=== PATIENT | male | born 1985 | race Native Hawaiian/Other Pacific Islander ===

== ENCOUNTER 2018-03-28 20:09 | Emergency (ER) | payer OTHER ==
[2018-03-28] MEDS: METHOCARBAMOL 750 MG TAB PO (20:53)
[2018-03-28] MEDS: NAPROXEN 250 MG TAB PO (20:53)
== END 2018-03-28 20:57 | disposition home or self-care (01) ==
LOC: M ED 20:09
DX: S39.012A Strain of muscle, fascia and tendon of lower back, initial encounter (principal); X50.0XXA Overexertion from strenuous movement or load, initial encounter
CPT/HCPCS: 99282

== ENCOUNTER 2019-01-19 04:45 | Emergency (ER) | payer OTHER ==
[~2019-01-19] VITALS: Ht 167.6 cm; Wt 65.9 kg
[~2019-01-19 04:45] MED LIST: NAPR-837 PO; ROBA500T PO
[2019-01-19 05:21] LABS: BASO % 0.6 % (0.0-1.0); EOS # 0.3 10^3/uL (0.0-0.5); EOS % 4.6 % (0.0-3.0); HEMATOCRIT 47.7 % (42.0-52.0); HEMOGLOBIN 16.3 g/dl (13.5-17.5); LYMPH # 2.7 10^3/uL (1.5-5.0); LYMPH % 41.7 % (24.0-44.0); MEAN CORPUSCULAR HEMOGLOBIN 33.7 pg (27.0-33.0); MEAN CORPUSCULAR HGB CONC 34.2 g/dl (32.0-36.5); MEAN CORPUSCULAR VOLUME 98.8 fl (80.0-96.0); MONO # 0.7 10^3/uL (0.0-0.8); MONO % 10.7 % (0.0-5.0); NEUTROPHILS # 2.8 10^3/uL (1.5-8.5); NEUTROPHILS % 42.2 % (36.0-66.0); PLATELET COUNT, AUTOMATED 218 10^3/uL (150-450); RED BLOOD COUNT 4.83 10^6/uL (4.30-6.10); WHITE BLOOD COUNT 6.6 10^3/uL (4.0-10.0)
--- NOTE | 2019-01-19 05:49 | REPVR ---
EXAM: CT Head Without Contrast EXAM DATE/TIME: 01/19/2019 4:56 AM CLINICAL HISTORY: 33 years old, male; Injury or trauma; Fall; Initial encounter; Concussion / head injury; Additional info: Syncope TECHNIQUE: Imaging protocol: Computed tomography of the head without contrast. Radiation optimization: All CT scans at this facility use at least one of these dose optimization techniques: automated exposure control; mA and/or kV adjustment per patient size (includes targeted exams where dose is matched to clinical indication); or iterative reconstruction. COMPARISON: No relevant prior studies available. FINDINGS: There are no intra-or extra-axial hemorrhages or fluid collections. There is no mass effect or midline shift. Ventricles are symmetrical and nondilated for age. There are no focal parenchymal abnormalities. No calvarial fractures. IMPRESSION: No acute intracranial process. No intracranial hemorrhage. Electronically signed by: Jimy Baldwin On 01/19/2019 05:49:14 AM
[2019-01-19 05:51] LABS: BLOOD UREA NITROGEN 16 MG/DL (7-18); CALCIUM LEVEL 9.3 MG/DL (8.5-10.1); CARBON DIOXIDE LEVEL 31 MEQ/L (21-32); CHLORIDE LEVEL 105 MEQ/L (98-107); CREATININE FOR GFR 1.15 MG/DL (0.70-1.30); GLOMERULAR FILTRATION RATE > 60.0 (>60); GLUCOSE, FASTING 105 MG/DL (70-100); POTASSIUM SERUM 4.2 MEQ/L (3.5-5.1); SODIUM LEVEL 142 MEQ/L (136-145)
--- NOTE | 2019-01-19 05:55 | REPVR ---
EXAM: CT Cervical Spine Without Contrast EXAM DATE/TIME: 01/19/2019 4:56 AM CLINICAL HISTORY: 33 years old, male; Injury or trauma; Fall; Initial encounter; Concussion /head injury; Additional info: Syncope TECHNIQUE: Imaging protocol: Computed tomography images of the cervical spine without contrast. Radiation optimization: All CT scans at this facility use at least one of these dose optimization techniques: automated exposure control; mA and/or kV adjustment per patient size (includes targeted exams where dose is matched to clinical indication); or iterative reconstruction. COMPARISON: No relevant prior studies available. FINDINGS: On sagittal sequences, there is normal cervical lordosis. Cervical vertebral body heights are maintained. Disc spaces are maintained. There is no AP malalignment. No prevertebral soft tissue swelling. Posterior elements and facets are intact. On axial sequences, intact neural rings are identified from C1-T1. No evidence of acute fracture. Visualized lung apices are clear. IMPRESSION: No acute fracture or traumatic AP malalignment within the cervical spine. Electronically signed by: Jimy Baldwin On 01/19/2019 05:54:48 AM
[2019-01-19] MEDS ORDERED: KETOROLAC 30 MG/ML VIAL (J1885) IV ONE (06:30)
[2019-01-19 07:23] LABS: ACETAMINOPHEN LEVEL < 2.0 UG/ML (10.0-30.0); ALBUMIN 4.3 GM/DL (3.2-5.2); ALT/SGPT 19 U/L (12-78); BILIRUBIN,DIRECT 0.1 MG/DL (0.0-0.2); BILIRUBIN,TOTAL 0.3 MG/DL (0.2-1.0); CK-MB VALUE MASS < 1.0 NG/ML (<3.6); CPK CREATINE PHOSPHOKINASE 108 U/L (39-308); ETHYL ALCOHOL (ETHANOL) < 0.003 % (0.000-0.010); MB/CK RELATIVE INDEX 0.93 (< OR =4); SALICYLATE LEVEL < 1.7 MG/DL (5.0-30.0); TROPONIN I < 0.02 NG/ML (< 0.10)
[2019-01-19 07:31] LABS: AMPHETAMINES LEVEL URINE NEGATIVE (NEGATIVE); BARBITURATES URINE NEGATIVE (NEGATIVE); BENZODIAZEPINES URINE NEGATIVE (NEGATIVE); CANNABINOIDS URINE NEGATIVE (NEGATIVE); COCAINE METABOLITE URINE NEGATIVE (NEGATIVE); METHADONE URINE NEGATIVE (NEGATIVE); OPIATES URINE NEGATIVE (NEGATIVE); PHENCYCLIDINE URINE NEGATIVE (NEGATIVE)
[2019-01-19] MEDS ORDERED: ISOVUE-370 76% 100ML VIAL (Q9967) As Ordered ONE (07:49)
--- NOTE | 2019-01-19 07:53 | REP ---
Clinical: Altered mental status . Comparison: None . Findings: The mediastinum and cardiac silhouette are stable and within normal limits for portable technique. There is subtle asymmetric oligemia involving the right lower lung zone with blunting to the costophrenic angle. These findings raise the possibility of a contained a anterior pneumothorax and small pleural effusion. Correlation is required. Impression: Changes to the right lower lung zone as described above cannot exclude contained a anterior pneumothorax and small pleural effusion versus large bulla. Correlation is required. Electronically Signed by Uriah Chapin MD 01/19/2019 07:44 A
--- NOTE | 2019-01-19 08:30 | REP ---
Clinical: Syncope. Abnormal findings on chest x-ray. Technique: Axial contrast enhanced images from the thoracic inlet to the upper abdomen with multiplanar re-formations and MIP re-formations using pulmonary embolus technique. 100 ml Isovue 370 intravenous contrast material administered without complication. Findings: Satisfactory enhancement of the pulmonary vasculature is achieved and no filling defects are identified to suggest pulmonary embolus. There appears to be chronic bronchiectasis and associated chronic atelectasis and near complete loss of the normal right middle lobe. Associated scarring extending from the right perihilar region into the right lung base noted. No acute consolidation. No effusion. No pneumothorax. No adenopathy. Mediastinum demonstrates normal thoracic aorta, pulmonary vasculature and heart/pericardium. No pericardial effusion. Musculoskeletal structures are intact. Limited upper abdomen demonstrates normal bilateral adrenal glands. Impression: 1. Chronic changes and volume loss with bronchiectasis and scarring to the right middle lobe is consistent with the appearance on x-ray and there is no evidence for associated pneumothorax or bulla. 2. No pulmonary embolus. 3. No acute mediastinal or pleuroparenchymal process. Electronically Signed by Uriah Chapin MD 01/19/2019 08:22 A
[2019-01-19 09:34] LABS: PROLACTIN 10.8 NG/ML (2.1-17.7)
[2019-01-19 09:54] VITALS: BP 98/58
--- NOTE | 2019-01-20 16:43 | ECGEPIP ---
[facility] - ED Test Date: 2019-01-19 Pat Name: DETSINY ROSE Department: Room: - Gender: Male User Support Analyst Supervisor: : [id number] Requested By: SHRADDHA Villasenor Order Number: [id number] Reading MD: Cee Tovar Measurements Intervals [place] Rate: 60 P: -54 CA: 147 QRS: 77 QRSD: 108 T: 54 QT: 413 QTc: 414 Interpretive Statements ECTOPIC ATRIAL RHYTHM ST ELEVATION, PROBABLY EARLY REPOLARIZATION, CLINCIAL CORRELATION TO EXCLUDE ISCHEMIA, PERICARDITIS ABNORMAL RHYTHM ECG Electronically Signed on 01-20-2019 16:43:36 EDT by Cee Tovar
== END 2019-01-19 10:03 | disposition home or self-care (01) ==
LOC: M ED 04:45
DX: R55 Syncope and collapse (principal); R94.31 Abnormal electrocardiogram [ECG] [EKG]; F17.210 Nicotine dependence, cigarettes, uncomplicated; Z79.1 Long term (current) use of non-steroidal anti-inflammatories (NSAID)
CPT/HCPCS: 70450; 71045; 71275; 72125; 80048; 80076; 80307; 82550; 82553; 83605; 84146; 84443; 84484; 85025; 93005; 93041; 94760; 99285; G0480; J1885; Q9967

== ENCOUNTER 2019-02-02 19:44 | Emergency (ER) | payer OTHER ==
[~2019-02-02] VITALS: Ht 172.7 cm; Wt 65.9 kg
[2019-02-02] MEDS ORDERED: KETOROLAC 60 MG/2 ML VIAL (J1885) IM ONE (22:30)
[2019-02-02] MEDS ORDERED: ACETAMINOPHEN 325 MG TAB PO ONE (22:30)
[2019-02-03] MEDS ORDERED: KETO10TAB PO
[2019-02-03 00:05] VITALS: BP 112/70
== END 2019-02-03 00:08 | disposition home or self-care (01) ==
LOC: M ED 19:44
DX: S29.012A Strain of muscle and tendon of back wall of thorax, initial encounter (principal); X50.0XXA Overexertion from strenuous movement or load, initial encounter; Y92.138 Other place on military base as the place of occurrence of the external cause; Y99.1 Military activity; F17.200 Nicotine dependence, unspecified, uncomplicated; Z79.1 Long term (current) use of non-steroidal anti-inflammatories (NSAID)
CPT/HCPCS: 81001; 96372; 99283; J1885

== ENCOUNTER → 2019-06-09 | Outpatient (CLI) | payer OTHER ==
[~2019-06-09] MED LIST changes: +KETO10TAB PO
--- NOTE | 2019-06-10 14:30 | EEG ---
DATE OF PROCEDURE: 06/09/2019 DIAGNOSIS: Syncope and memory loss. 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 The patient states that he woke up in his kitchen, went back to bed and when he woke up he did not remember that he was in the [employer]. He is currently taking prazosin, Prozac, Wellbutrin and naltrexone. TECHNICAL DESCRIPTION: This digital EEG was recorded by 21 scalp, ear and two EKG electrodes and was reviewed in bipolar and referential montages following reformatting in 10-20 international electrode placement system. INTERPRETATION: The patient was noted to be in awake and drowsy states during this EEG. Resting awake background rhythm consisted of well-formed posterior dominant rhythm with anterior/posterior gradient comprising of 9.5 Hz alpha activity measuring 15-40 microvolts in amplitude which was symmetric and reactive to eye opening. Anteriorly low voltage and mixed frequency activity was noted. Attenuation of posterior dominant rhythm was seen during transition into drowsiness. Stage I sleep was reviewed and was symmetric bilaterally. Hyperventilation could not be performed. Photic stimulation at 3-30 Hz elicited symmetric photic driving, especially at mid frequencies. EKG revealed normal sinus rhythm. No focal, lateralizing or epileptiform abnormalities were seen. No relevant clinical activity was noted. CONCLUSION: This EEG in awake, drowsy states and stage I sleep is within normal limits.
== END ==
LOC: M SLEEP 08:16
PROVIDERS: ATTEND Surgery
DX: R55 Syncope and collapse (principal)